=== PATIENT | male | born 1975 | race Caucasian/White ===

== ENCOUNTER 2017-12-20 08:21 | Day surgery (SDC) | payer OTHER ==
[2017-12-19 14:24] VITALS: BMI 23.6
[~2017-12-20 08:21] MED LIST: DEXAMETHASONE SOD PHOSPHATE 10 MG/ML 1 ML VIAL IV ONE; LACTATED RINGERS 1,000 ML IV SCH; ONDANSETRON 4 MG/2 ML VIAL IVP ONE; ONDANSETRON 4 MG/2 ML VIAL IVP PRN; SCOPOLAMINE 1.5MG/72HR PATCH TRANSDERM ONE
[2017-12-20 08:41] VITALS: TEMP 97.6
[2017-12-20 08:51] LABS: Glucose,Whole Blood 98 mg/dL (75-99)
[2017-12-20] MEDS ORDERED: PROPOFOL 10 MG/ML 20 ML VIAL IV ONE (09:06)
[2017-12-20] MEDS ORDERED: LIDOCAINE 1% INJ 10MG/ML (20 ML MDV) ONE (09:06)
--- NOTE | 2017-12-20 09:06 | P.GSHP ---
History of Present Illness H&P Date: 12/20/17 Chief Complaint: GERD, dysphagia 's is a 42-year-old male referred from Dr. Joanna Jc. Patient presents today for EGD. He's had issues with GERD and dysphagia. He describes trouble eating meats. Past Medical History Past Medical History: GERD/Reflux, Hypertension Additional Past Medical History / Comment(s): States golf ball size mass near sternum. History of Any Multi-Drug Resistant Organisms: None Reported Additional Past Surgical History / Comment(s): [place] teeth, ear tubes. R cataract surgery. Past Anesthesia/Blood Transfusion Reactions: No Reported Reaction Smoking Status: Never smoker - Past Family History Mother Family Medical History: Cancer Additional Family Medical History / Comment(s): Breast Medications and Allergies Home Medications Medication Instructions Recorded Confirmed Type Ibuprofen [Motrin] 800 mg PO DAILY PRN 12/19/17 12/19/17 History Melatonin 3 mg PO HS 12/19/17 12/19/17 History Ranitidine HCl [Zantac] 150 mg PO HS 12/19/17 12/19/17 History amLODIPine BESYLATE/BENAZEPRIL 1 cap PO DAILY 12/19/17 12/19/17 History [Lotrel 10-40 mg Capsule] diphenhydrAMINE [Benadryl] 25 mg PO HS PRN 12/19/17 12/19/17 History Allergies Allergy/AdvReac Type Severity Reaction Status Date / Time Penicillins Allergy Anaphylaxis Verified 12/20/17 08:34 Surgical - Exam Vital Signs Temp Pulse Resp BP Pulse Ox 97.6 F 61 16 108/74 99 12/20/17 08:36 12/20/17 08:36 12/20/17 08:36 12/20/17 08:36 12/20/17 08:36 - General well developed, no distress - Eyes PERRL - ENT normal pinna - Neck no masses - Respiratory normal expansion - Cardiovascular Rhythm: regular - Abdomen Abdomen: soft, non tender Assessment and Plan Assessment: GERD, dysphagia. We'll perform EGD.
[2017-12-20 09:41] VITALS: BP 115/77; PULSE 59; RESP 18
--- NOTE | 2018-01-04 10:13 | P.OP ---
Date of Procedure: 12/20/17 Preoperative Diagnosis: GERD Dysphagia Postoperative Diagnosis: Antral gastritis Hiatal hernia Esophagitis Procedure(s) Performed: EGD Anesthesia: MAC Surgeon: Helder Gibbons Pathology: other (Antrum, esophagus) Condition: stable Disposition: PACU Description of Procedure: The patient's placed on the endoscopy table in the lateral position. He received IV sedation. The gastroscope placed oropharynx and passed into the esophagus and into the stomach. Scope was then placed through the pylorus. The first and second portion of the duodenum appeared normal. Scope was then brought back the antrum this. Mildly inflamed. A biopsies performed. The scope was unretroflexed there was a small hiatal hernia. The GE junction was at 38 7 is. The distal esophagus appeared significantly inflamed. There is evidence of esophagitis. This was biopsied. The proximal esophagus appeared normal. Scope was withdrawn for patient.
== END 2017-12-20 09:52 | disposition home or self-care (01) ==
LOC: ORWHC2ENDO 08:21
PROVIDERS: ATTEND Surgery
DX: K29.50 Unspecified chronic gastritis without bleeding (principal); K22.10 Ulcer of esophagus without bleeding; K21.0 Gastro-esophageal reflux disease with esophagitis; K44.9 Diaphragmatic hernia without obstruction or gangrene; I10 Essential (primary) hypertension; Z79.899 Other long term (current) drug therapy; Z88.0 Allergy status to penicillin
CPT/HCPCS: 88305; 88312; 43239; J2001; J2704

== ENCOUNTER → 2022-03-02 | Outpatient (CLI) | payer OTHER ==
--- NOTE | 2022-03-02 11:55 | CA ---
Exercise Stress Test Report Name: Niko Kendrick Exam Date: 03/02/2022 08:45 Exam Location: [place] Stress Ht (in): 685 Wt (lb): 165 BSA: 10.05 Ordering Phys: Grant Alegria DO Referring Phys: LATOYA,, Technologist: Tonya King RDCS Age: 46 Gender: M : 1975 Procedure CPT: Indications: R07.89 chest pain ICD-10 Codes: Patient History: high cholesterol Medications: toprol, omeprazole Meds past 24 hrs: Pretest Chest Pain: STRESS TEST Michael Protocol Exercise Duration (min:sec): 11:[address] Depressions (mm): 0 Angina Score: 0 Gutierrez Score: 12 Resting HR (bpm): 64 Peak HR (bpm): 167 Resting BP (mmHg): 109 / 80 Peak BP (mmHg): 157 / 74 MPHR: 172 Target HR: 146 % MPHR: 97 METS: 12.1 Total Dose: Peak Dose: Atropine: Double Product: 92472 BP Response: Stress Termination: Reached target heart rate Stress Symptoms: Stress Summary: ECG ANALYSIS Resting ECG: Sinus rhythm. Normal conduction. No arrhythmias. Normal repolarization. Stress ECG: No ECG evidence of ischemia with exercise. CONCLUSIONS Patient falls into low-risk group (DTS >= +5). This associates the patient with an annual CV mortality <= 0.5%. 1. Good exercise tolerance with no chest discomfort 2. Normal electrocardiographic response to exercise with no evidence of exercise induced ischemia. Dr. Kb Real MD (Electronically Signed) Final Date: 02 March 2022 11:55
== END | disposition home or self-care (01) ==
LOC: RADNMMAIN 08:28
PROVIDERS: ATTEND Family Medicine
DX: R07.89 Other chest pain (principal); I10 Essential (primary) hypertension
CPT/HCPCS: 93017

== ENCOUNTER 2023-06-19 23:59 | Emergency (ER) | payer OTHER ==
[2023-06-20 00:16] VITALS: TEMP 98.6
--- NOTE | 2023-06-20 00:21 | ED ---
Chest Pain HPI - General Chief Complaint: Chest Pain Stated Complaint: Chest Pain Time Seen by Provider: 06/20/23 00:09 Source: patient, RN notes reviewed, old records reviewed Mode of arrival: ambulatory Limitations: no limitations - History of Present Illness Initial Comments: This is a 47-year-old male to the ER for evaluation today. Patient was today for evaluation of severe chest pain episodic throughout the day woke him up from a nap earlier today and persisted here tonight. Chest pain in the left side of his chest left arm and back. Chest pain no recent travels no sick contacts no fever cough or congestion or shortness of breath history of high blood pressure and noticed blood pressure to be elevated today MD Complaint: chest pain -: hour(s) Onset: during rest, during exertion, awoke with symptoms Pain Location: substernal, left chest Pain Radiation: back Severity: moderate Severity scale (1-10): 5 Quality: heaviness Consistency: intermittent Improves With: nothing Worsens With: nothing Anginal Symptoms: sense of impending doom Other Symptoms: palpitations Treatments Prior to Arrival: none - Related Data Home Medications Medication Instructions Recorded Confirmed Ibuprofen [Motrin] 800 mg PO DAILY PRN 12/19/17 12/19/17 Melatonin 3 mg PO HS 12/19/17 12/19/17 Ranitidine HCl [Zantac] 150 mg PO HS 12/19/17 12/19/17 amLODIPine BESYLATE/BENAZEPRIL 1 cap PO DAILY 12/19/17 12/19/17 [Lotrel 10-40 mg Capsule] diphenhydrAMINE [Benadryl] 25 mg PO HS PRN 12/19/17 12/19/17 Allergies Allergy/AdvReac Type Severity Reaction Status Date / Time Penicillins Allergy Anaphylaxis Verified 06/20/23 00:04 Review of Systems ROS Statement: Those systems with pertinent positive or pertinent negative responses have been documented in the HPI. ROS Other: All systems not noted in ROS Statement are negative. EKG Findings - EKG Comments: EKG Findings:: EKG is sinus 94 [place] 175 QRS 113 QTc 391 - EKG Results: EKG: interpreted by СЕРГЕЙ Past Medical History Past Medical History: GERD/Reflux, Hypertension Additional Past Medical History / Comment(s): States golf ball size mass near sternum. History of Any Multi-Drug Resistant Organisms: None Reported Additional Past Surgical History / Comment(s): [place] teeth, ear tubes. R cataract surgery. Past Anesthesia/Blood Transfusion Reactions: No Reported Reaction Past Psychological History: No Psychological Hx Reported Smoking Status: Never smoker Past Alcohol Use History: None Reported Past Drug Use History: None Reported - Past Family History Mother Family Medical History: Cancer Additional Family Medical History / Comment(s): Breast General Exam Limitations: no limitations General appearance: alert, in no apparent distress Head exam: Present: atraumatic, normocephalic, normal inspection Eye exam: Present: normal appearance, PERRL, EOMI. Absent: scleral icterus, conjunctival injection, periorbital swelling ENT exam: Present: normal exam, mucous membranes moist Neck exam: Present: normal inspection. Absent: tenderness, meningismus, lymphadenopathy Respiratory exam: Present: normal lung sounds bilaterally. Absent: respiratory distress, wheezes, rales, rhonchi, stridor Cardiovascular Exam: Present: regular rate, normal rhythm, normal heart sounds. Absent: systolic murmur, diastolic murmur, rubs, gallop, clicks GI/Abdominal exam: Present: soft, normal bowel sounds. Absent: distended, tenderness, guarding, rebound, rigid Extremities exam: Present: normal inspection, full ROM, normal capillary refill. Absent: tenderness, pedal edema, joint swelling, calf tenderness Back exam: Present: normal inspection Neurological exam: Present: alert, oriented X3, CN II-XII intact Psychiatric exam: Present: normal affect, normal mood Skin exam: Present: warm, dry, intact, normal color. Absent: rash Course Vital Signs 06/20/23 06/20/23 06/20/23 00:02 01:19 03:00 Temperature 98.6 F Pulse Rate 115 H 93 92 Respiratory 20 18 18 Rate Blood Pressure 131/79 118/84 124/95 O2 Sat by Pulse 98 96 96 Oximetry - Reevaluation(s) Reevaluation #1: 06/20/23 00:53 Medical records reviewed Reevaluation #2: 06/20/23 00:53 Patient remains with mild symptoms Reevaluation #3: 06/20/23 04:48 Patient informed of results and questions answered Studies C CTA chest is negative for acute disease Reevaluation #4: Was pt. sent in by a medical professional or institution (, PA, MAINTENANCE MECHANIC ENGINE, urgent care, hospital, or [facility]...) When possible be specific @ -no Did you speak to anyone other than the patient for history (EMS, parent, family, police, friend...)? What history was obtained from this source @ -no Did you review nursing and triage notes (agree or disagree)? Why? @ -agree Are old charts reviewed (outside hosp., previous admission, EMS record, old EKG, old radiological studies, urgent care reports/EKG's, [facility] records)? Report findings @ -yes Differential Diagnosis (chest pain, altered mental status, abdominal pain women, abdominal pain men, vaginal bleeding, weakness, fever, dyspnea, syncope, headache, dizziness, GI bleed, back pain, seizure, CVA, palpatations, mental health, musculoskeletal)? @ -prior EKG interpreted by me (3pts min.). @ -yes X-rays interpreted by me (1pt min.). @ -no CT interpreted by me (1pt min.). @ -Yes negative for acute disease U/S interpreted by me (1pt. min.). @ -no What testing was considered but not performed or refused? (CT, X-rays, U/S, labs)? Why? @ -none What meds were considered but not given or refused? Why? @ -none Did you discuss the management of the patient with other professionals (professionals i.e. , PA, MAINTENANCE MECHANIC ENGINE, lab, RT, psych nurse, long term care social worker, merchandise team manager, teacher, forest fire management officer, director of casework department)? Give summary @ -no Was smoking cessation discussed for >3mins.? @ -no Was critical care preformed (if so, how long)? @ -no Were there social determinants of health that impacted care today? How? (Homelessness, low income, unemployed, alcoholism, drug addiction, transportation, low edu. Level, literacy, decrease access to med. care, assisted, rehab)? @ -none Was there de-escalation of care discussed even if they declined (Discuss DNR or withdrawal of care, Hospice)? DNR status @ -no What co-morbidities impacted this encounter? (DM, HTN, Smoking, COPD, CAD, Cancer, CVA, ARF, Chemo, Hep., AIDS, mental health diagnosis, sleep apnea, morbid obesity)? @ -none Was patient admitted / discharged? Hospital course, mention meds given and route, prescriptions, significant lab abnormalities, going to OR and other pertinent info. @ - 47 male with nonspecific chest pain and elevated blood pressure here in the ER, patient had left-sided chest pain the left back to the left chest to left shoulder and left arm with history of high blood pressure concern for heart disease. Patient has no acute findings here in the ER troponin negative x 2, CT with pain to his back is negative for acute disease Discharge Undiagnosed new problem with uncertain prognosis? @ -no Drug Therapy requiring intensive monitoring for toxicity (Heparin, Nitro, Insulin, Cardizem)? @ -no Were any procedures done? @ -no Diagnosis/symptom? @ -Yes with chest pain Acute, or Chronic, or Acute on Chronic? @ -Acute Uncomplicated (without systemic symptoms) or Complicated (systemic symptoms)? @ -Complicated Side effects of treatment? @ -no Exacerbation, Progression, or Severe Exacerbation? @ -exacerbation Poses a threat to life or bodily function? How? (Chest pain, [place], ID, pneumonia, PE, COPD, DKA, ARF, appy, cholecystitis, CVA, Diverticulitis, Homicidal, Suicidal, threat to staff... and all critical care pts) @ -yes Reevaluation #5: Differential Chest Pain: Stable Angina, Unstable Angina, STEMI, NSTEMI Aortic Dissection, Pneumothorax, Musculoskeletal, Esophageal Spasm GERD, Cholecystitis, Pancreatitis, Zoster, this is not meant to be an all-inclusive list. Chest Pain MDM - MDM 47 male with nonspecific chest pain and elevated blood pressure here in the ER, patient had left-sided chest pain the left back to the left chest to left shoulder and left arm with history of high blood pressure concern for heart disease. Patient has no acute findings here in the ER troponin negative x 2, CT with pain to his back is negative for acute disease Disposition Clinical Impression: Atypical chest pain, Chest pain, Hypertension Disposition: HOME SELF-CARE Condition: Good Instructions (If sedation given, give patient instructions): Chest Pain (ED) Is patient prescribed a controlled substance at d/c from ED?: No Referrals: Grant Alegria DO [Primary Care Provider] - 1-2 days Time of Disposition: 04:45
[2023-06-20 00:50] LABS: Partial Thromboplastin Time 24.3 sec (22.0-30.0); Prothrombin Time 10.9 sec (10.0-12.5)
[2023-06-20 00:52] LABS: Basophils % (A) 0 %; Eosinophils % (A) 1 %; HCT 43.6 % (39.0-53.0); HGB 14.8 gm/dL (13.0-17.5); Lymphocytes # (A) 1.2 k/uL (1.0-4.8); Lymphocytes % (A) 18 %; MCH 30.2 pg (25.0-35.0); MCHC 33.9 g/dL (31.0-37.0); Mean Platelet Volume 8.2; Monocytes # (A) 0.4 k/uL (0-1.0); Monocytes % (A) 6 %; Neutrophils # (A) 4.9 k/uL (1.3-7.7); Neutrophils % (A) 74 %; Platelet Count 184 k/uL (150-450); RDW 12.5 % (11.5-15.5); WBC 6.6 k/uL (3.8-10.6)
[2023-06-20 00:54] LABS: ALT 23 U/L (4-49); AST 22 U/L (17-59); African American GFR (CKD) >90 (>60 ml/min/1.73 sqM); Albumin 4.4 g/dL (3.5-5.0); Alkaline Phosphatase 91 U/L (38-126); Anion Gap 10 mmol/L; Blood Urea Nitrogen 22 mg/dL (9-20); Calcium 9.1 mg/dL (8.4-10.2); Carbon Dioxide 21 mmol/L (22-30); Chloride 105 mmol/L (98-107); Glucose 110 mg/dL (74-99); Lipase 92 U/L (23-300); Non-African American GFR(CKD) 88 (>60 ml/min/1.73 sqM); Potassium 3.7 mmol/L (3.5-5.1); Sodium 136 mmol/L (137-145); Total Bilirubin 0.6 mg/dL (0.2-1.3); Total Protein 7.3 g/dL (6.3-8.2)
[2023-06-20 01:02] LABS: NT-Pro-B-Type Natriuretic Pept <20 pg/mL
[2023-06-20] MEDS: SODIUM CHLORIDE 0.9% 1,000 ML IV STA (01:46)
[2023-06-20] MEDS: KETOROLAC 15 MG/ML 1 ML VIAL IVP STA (01:47)
[2023-06-20 01:49] VITALS: RESP 18
--- NOTE | 2023-06-20 02:22 | CT ---
EXAM: CT Angiography Chest With Intravenous Contrast CLINICAL HISTORY: CT Reason: cp TECHNIQUE: Axial computed tomographic angiography images of the chest with intravenous contrast. CTDI is 19.47 mGy and DLP is 332.2 mGy-cm. This CT exam was performed using one or more of the following dose reduction techniques: automated exposure control, adjustment of the mA and/or kV according to patient size, and/or use of iterative reconstruction technique. MIP reconstructed images were created and reviewed. COMPARISON: No relevant prior studies available. FINDINGS: Pulmonary arteries: The pulmonary arterial tree is well opacified with contrast. No pulmonary embolism is identified. Aorta: The aortic arch is slightly calcified but nondilated. There is no aneurysm or dissection. Lungs: Unremarkable. No mass. No consolidation. Pleural space: Unremarkable. No significant effusion. No pneumothorax. Heart: The heart is not enlarged. Mild coronary calcification is present. No pericardial effusion. No evidence of RV dysfunction. Bones/joints: No acute fracture. No dislocation. Soft tissues: Unremarkable. Lymph nodes: Unremarkable. No enlarged lymph nodes. IMPRESSION: 1. The aortic arch is slightly calcified but nondilated. There is no aneurysm or dissection. 2. The pulmonary arterial tree is well opacified with contrast. No pulmonary embolism is identified. 3. The heart is not enlarged. Mild coronary calcification is present. No pericardial effusion.
[2023-06-20 03:40] VITALS: BP 124/95; PULSE 92
== END 2023-06-20 04:59 | disposition home or self-care (01) ==
LOC: EC 23:59
DX: I45.10 Unspecified right bundle-branch block (principal); I10 Essential (primary) hypertension; Z88.0 Allergy status to penicillin
CPT/HCPCS: 36415; 93005; 85379; 83880; 80053; 83690; 83735; 84484; 85025; 85610; 85730; 71275; 99285; 96360; Q9967